=== PATIENT | female | born 2000 | race Two or more races ===

== ENCOUNTER 2022-09-01 08:28 | Emergency (ER) | payer BC, OTHER ==
--- NOTE | 2022-09-01 09:00 | ED ---
URI HPI - General Chief Complaint: Upper Respiratory Infection Stated Complaint: URI Time Seen by Provider: 09/01/22 08:28 Source: patient, RN notes reviewed Mode of arrival: wheelchair Limitations: no limitations - History of Present Illness Initial Comments: Patient is a 22 year old female presenting to the ER with a chief complaint of cough. She is 36 weeks . Patient symptoms started on 08/29/22, with a productive cough. She describes the phlegm as clear sometimes green/yellow. She is now experiencing a constant dry cough. She endorses associated headache, chills and nightsweats. She is unsure if she has had a fever because she did not take her temperature. Patient admits to a recent sick contact within the last week. She reports the cough is worse when laying down which is causing her to have abdominal pain. Last night, she reports experiencing diarrhea which continued into this morning. She has been taking Mucinex, Robutossin and cough drop with no relief. - Related Data Allergies Allergy/AdvReac Type Severity Reaction Status Date / Time bee pollen Allergy Unknown Verified 09/01/22 08:31 Review of Systems ROS Statement: Those systems with pertinent positive or pertinent negative responses have been documented in the HPI. ROS Other: All systems not noted in ROS Statement are negative. Past Medical History Past Medical History: No Reported History History of Any Multi-Drug Resistant Organisms: None Reported Past Surgical History: No Surgical Hx Reported Past Psychological History: No Psychological Hx Reported Smoking Status: Never smoker Past Alcohol Use History: None Reported Past Drug Use History: None Reported General Exam Limitations: no limitations Head exam: Present: atraumatic, normocephalic, normal inspection Eye exam: Present: normal appearance, PERRL, EOMI. Absent: scleral icterus, conjunctival injection, periorbital swelling ENT exam: Present: normal exam, mucous membranes moist Neck exam: Present: normal inspection. Absent: tenderness, meningismus, lymphadenopathy Respiratory exam: Present: normal lung sounds bilaterally. Absent: respiratory distress, wheezes, rales, rhonchi, stridor Cardiovascular Exam: Present: tachycardia, normal heart sounds Neurological exam: Present: alert, oriented X3, CN II-XII intact Skin exam: Present: warm, dry, intact, normal color. Absent: rash Course Vital Signs 09/01/22 09/01/22 08:28 09:10 Temperature 98.0 F 98.1 F Pulse Rate 111 H 101 H Respiratory 20 Rate Blood Pressure 108/75 O2 Sat by Pulse 97 98 Oximetry Medical Decision Making - Medical Decision Making 22-year-old female presents for cough and cold like symptoms. Patient's RSV positive. Patient was checked that she does have RSV if she delivers she should notify her MEDICAL MANAGER. Return parameters were discussed. Supportive treatment. - Lab Data Lab Results 09/01/22 Range/Units 09:10 Influenza Type A (PCR) Not Detected (Not Detectd) Influenza Type B (PCR) Not Detected (Not Detectd) RSV (PCR) Detected A (Not Detectd) SARS-CoV-2 (PCR) Not Detected (Not Detectd) Disposition Clinical Impression: RSV infection Disposition: HOME SELF-CARE Condition: Stable Instructions (If sedation given, give patient instructions): Respiratory Syncytial Virus (ED) Additional Instructions: Please return to the Emergency Department if symptoms worsen or any other concerns. Is patient prescribed a controlled substance at d/c from ED?: No Referrals: None,Stated [Primary Care Provider] - 1-2 days Time of Disposition: 10:54
--- NOTE | 2022-09-01 09:51 | XR ---
EXAMINATION TYPE: XR chest 2V DATE OF EXAM: 09/01/2022 COMPARISON: NONE TECHNIQUE: PA and lateral views submitted. HISTORY: fever, cough FINDINGS: The lungs are clear and there is no pneumothorax, pleural effusion, or focal pneumonia. Size normal . No overt failure. IMPRESSION: 1. No acute process.
[2022-09-01 11:06] VITALS: BP 131/70; PULSE 99; RESP 16; TEMP 98.2
== END 2022-09-01 11:05 | disposition home or self-care (01) ==
LOC: EC 08:28
DX: J06.9 Acute upper respiratory infection, unspecified (principal); B97.4 Respiratory syncytial virus as the cause of diseases classified elsewhere; Z20.822 Contact with and (suspected) exposure to COVID-19; Z91.030 Bee allergy status
CPT/HCPCS: 71046; 87636; 99283

== ENCOUNTER 2023-11-08 14:04 | Emergency (ER) | payer OTHER ==
[2023-11-08 14:25] VITALS: TEMP 98
--- NOTE | 2023-11-08 14:37 | ED ---
URI HPI - General Source: patient, RN notes reviewed Mode of arrival: ambulatory Limitations: no limitations <Stephanie Dockery - Last Filed: 11/08/23 14:37> - General Source: RN notes reviewed, old records reviewed Mode of arrival: ambulatory Limitations: no limitations - History of Present Illness MD Complaint: cough -: days(s) Severity: severe Severity scale (1-10): 8 Quality: sharp Consistency: intermittent Improves With: nothing Worsens With: nothing Associated Symptoms: cough, chest pain Treatments Prior to Arrival: none <Monty Kerr - Last Filed: 11/15/23 16:26> - General Chief Complaint: Upper Respiratory Infection Stated Complaint: R side rib pain Time Seen by Provider: 11/08/23 14:37 - History of Present Illness Initial Comments: Patient is a 23-year-old female presented ER with chief complaint of right-sided rib pain. Patient states she recently had Covid and is still coughing. Patient states she coughed today and heard a pop on her right side. Patient is 8 weeks . (Stephanie Dockery) This is a 23-year-old female to the emergency department for evaluation of rib pain after Covid: Persistent cough. Severe right-sided rib pain and concern for fracture (Monty Kerr) - Related Data Home Medications Medication Instructions Recorded Confirmed No Known Home Medications 11/08/23 11/08/23 Allergies Allergy/AdvReac Type Severity Reaction Status Date / Time bee pollen Allergy Unknown Verified 11/08/23 15:54 Review of Systems ROS Other: All systems not noted in ROS Statement are negative. <Stephanie Dockery - Last Filed: 11/08/23 14:37> ROS Other: All systems not noted in ROS Statement are negative. <Monty Kerr - Last Filed: 11/15/23 16:26> ROS Statement: Those systems with pertinent positive or pertinent negative responses have been documented in the HPI. Past Medical History Past Medical History: No Reported History History of Any Multi-Drug Resistant Organisms: None Reported Past Surgical History: No Surgical Hx Reported Past Psychological History: No Psychological Hx Reported Smoking Status: Never smoker Past Alcohol Use History: None Reported Past Drug Use History: None Reported <Stephanie Dockery - Last Filed: 11/08/23 14:37> General Exam Limitations: no limitations <Stephanie Dockery - Last Filed: 11/08/23 14:37> General appearance: alert, in no apparent distress Head exam: Present: atraumatic, normocephalic, normal inspection Eye exam: Present: normal appearance, PERRL, EOMI. Absent: scleral icterus, conjunctival injection, periorbital swelling ENT exam: Present: normal exam, mucous membranes moist Neck exam: Present: normal inspection. Absent: tenderness, meningismus, lymphadenopathy Respiratory exam: Present: normal lung sounds bilaterally. Absent: respiratory distress, wheezes, rales, rhonchi, stridor Cardiovascular Exam: Present: regular rate, normal rhythm, normal heart sounds. Absent: systolic murmur, diastolic murmur, rubs, gallop, clicks GI/Abdominal exam: Present: soft, normal bowel sounds. Absent: distended, tenderness, guarding, rebound, rigid Extremities exam: Present: normal inspection, full ROM, normal capillary refill. Absent: tenderness, pedal edema, joint swelling, calf tenderness Back exam: Present: normal inspection Neurological exam: Present: alert, oriented X3, CN II-XII intact Psychiatric exam: Present: normal affect, normal mood Skin exam: Present: warm, dry, intact, normal color. Absent: rash <Monty Kerr - Last Filed: 11/15/23 16:26> - General Exam Comments Initial Comments: Visual Physical Exam Vital signs reviewed General: Well-appearing, nontoxic, no acute distress. Head: Normocephalic, atraumatic Eyes: PERRLA, EOMI ENT: Airway patent Chest: Nonlabored breathing Skin: No visual rash, normal skin tone Neuro: Alert and oriented 3 Musculoskeletal: No gross abnormalities (Stephanie Dockery) Course <Monty Kerr - Last Filed: 11/15/23 16:26> Vital Signs 11/08/23 11/08/23 11/08/23 14:17 15:23 16:44 Temperature 98 F Pulse Rate 114 H 107 H Respiratory 20 18 18 Rate Blood Pressure 106/60 101/64 O2 Sat by Pulse 97 100 Oximetry - Reevaluation(s) Reevaluation #1: Medical records reviewed (Monty Kerr) Reevaluation #2: Patient symptoms are improved (Monty Kerr) Reevaluation #3: Patient informed results and questions have been answered (Monty Kerr) Reevaluation #4: Was pt. sent in by a medical professional or institution (ISAURA Atkins, [employer] F[employer]ITURE PANEL COVERER, urgent care, hospital, or fdc...) When possible be specific @ -no Did you speak to anyone other than the patient for history (EMS, parent, family, police, friend...)? What history was obtained from this source @ -no Did you review nursing and triage notes (agree or disagree)? Why? @ -agree Are old charts reviewed (outside hosp., previous admission, EMS record, old EKG, old radiological studies, urgent care reports/EKG's, fdc records)? Report findings @ -yes Differential Diagnosis (chest pain, altered mental status, abdominal pain women, abdominal pain men, vaginal bleeding, weakness, fever, dyspnea, syncope, headache, dizziness, GI bleed, back pain, seizure, CVA, palpatations, mental health, musculoskeletal)? @ -prior EKG interpreted by me (3pts min.). @ -no X-rays interpreted by me (1pt min.). @ -yes negative for acute disease CT interpreted by me (1pt min.). @ -no U/S interpreted by me (1pt. min.). @ -no What testing was considered but not performed or refused? (CT, X-rays, U/S, labs)? Why? @ -none What meds were considered but not given or refused? Why? @ -none Did you discuss the management of the patient with other professionals (professionals i.e. ISAURA Atkins, [employer] F[employer]ITURE PANEL COVERER, lab, RT, psych nurse, social media strategist, sales coach, teacher, commanding officer homicide squad, piano case maker)? Give summary @ -no Was smoking cessation discussed for >3mins.? @ -no Were there social determinants of health that impacted care today? How? (Homelessness, low income, unemployed, alcoholism, drug addiction, transportation, low edu. Level, literacy, decrease access to med. care, [facility], rehab)? @ -none Was there de-escalation of care discussed even if they declined (Discuss DNR or withdrawal of care, Hospice)? DNR status @ -no What co-morbidities impacted this encounter? (DM, HTN, Smoking, COPD, CAD, Cancer, CVA, ARF, Chemo, Hep., AIDS, mental health diagnosis, sleep apnea, morbid obesity)? @ -none Was patient admitted / discharged? Hospital course, mention meds given and route, prescriptions, significant lab abnormalities, going to OR and other pertinent info. @ - 23 female to the emergency department for evaluation of chest pain after coughing. Rib pain. Patient has no acute findings here in the emergency prior. Patient is weeks with distress. Patient has adequate pain control can be discharged home Discharge Was critical care preformed (if so, how long)? @ -no Undiagnosed new problem with uncertain prognosis? @ -no Drug Therapy requiring intensive monitoring for toxicity (Heparin, Nitro, Insulin, Cardizem)? @ -no Were any procedures done? @ -no Diagnosis/symptom? @ -Cough, rib pain Acute, or Chronic, or Acute on Chronic? @ -Acute Uncomplicated (without systemic symptoms) or Complicated (systemic symptoms)? @ -Complicated Side effects of treatment? @ -no Exacerbation, Progression, or Severe Exacerbation? @ -exacerbation Poses a threat to life or bodily function? How? (Chest pain, USA, NE, pneumonia, PE, COPD, DKA, ARF, appy, cholecystitis, CVA, Diverticulitis, Homicidal, Suicidal, threat to staff... and all critical care pts) @ -no (Monty Kerr) Reevaluation #5: Differential Dyspnea: Coronary syndrome, arrhythmia, tamponade, asthma, COPD, pulmonary embolism, pneumonia, pneumothorax, pulmonary effusion, anaphylaxis, diabetic ketoacidosis, flailed chest, pulmonary contusion, diaphragmatic rupture, anemia, neuromuscular, this is not meant to be an all-inclusive list. (Karey Kerr rissunday Al) Medical Decision Making <Stephanie Dockery - Last Filed: 11/08/23 14:37> - Radiology Data Radiology results: report reviewed (Chest x-ray is negative for acute disease), image reviewed <Monty Kerr - Last Filed: 11/15/23 16:26> - Medical Decision Making I performed the quick note portion of the exam. Electronically signed by Stephanie Dockery PA-C (Stephanie Dockery) 23 female to the emergency department for evaluation of chest pain after coughing. Rib pain. Patient has no acute findings here in the emergency prior. Patient is weeks with distress. Patient has adequate pain co ntrol can be discharged home (Monty Kerr) - Lab Data Lab Results 11/08/23 Range/Units 16:20 Urine Color Colorless Urine Appearance Clear (Clear) Urine pH 7.5 (5.0-8.0) Ur Specific Arnold 1.004 (1.001-1.035) Urine Protein Negative (Negative) Urine Glucose (UA) Negative (Negative) Urine Ketones Negative (Negative) Urine Blood Negative (Negative) Urine Nitrite Negative (Negative) Urine Bilirubin Negative (Negative) Urine Urobilinogen <2.0 (<2.0) mg/dL Ur Leukocyte Esterase Negative (Negative) Disposition <Stephanie Dockery - Last Filed: 11/08/23 14:37> Is patient prescribed a controlled substance at d/c from ED?: No Time of Disposition: 16:20 <Monty Kerr - Last Filed: 11/15/23 16:26> Clinical Impression: Contusion of rib on right side, Bronchitis, Upper respiratory tract infection Disposition: HOME SELF-CARE Condition: Good Instructions (If sedation given, give patient instructions): Rib Contusion (ED) Referrals: None,Stated [Primary Care Provider] - 1-2 days
--- NOTE | 2023-11-08 15:15 | XR ---
EXAMINATION TYPE: XR ribs RT DATE OF EXAM: 11/08/2023 COMPARISON: NONE HISTORY: Pain TECHNIQUE: 2 views right RIBS FINDINGS: The right lung is clear with no evidence of consolidation. No pleural effusion or sizable p neumothorax. Osseous structures are intact. No acute displaced rib fracture. IMPRESSION: No acute displaced rib fracture.
[2023-11-08 15:38] VITALS: RESP 18
[2023-11-08] MEDS ORDERED: diphenhydrAMINE 50 MG CAP PO STA (15:55)
[2023-11-08] MEDS ORDERED: ACETAMINOPHEN TAB 500 MG TAB PO STA (15:55)
[2023-11-08 16:47] LABS: Appearance,Urine Clear (Clear); Bilirubin,Urine Negative (Negative); Blood,Urine Negative (Negative); Color,Urine Colorless; Glucose,Urine (UA) Negative (Negative); Ketones,Urine Negative (Negative); Leukocyte Esterase,Urine Negative (Negative); Nitrite,Urine Negative (Negative); PH, Urine 7.5 (5.0-8.0); Protein,Urine Negative (Negative); Specific Gravity,Urine 1.004 (1.001-1.035); Urobilinogen,Urine <2.0 mg/dL (<2.0)
[2023-11-08 16:49] VITALS: BP 101/64; PULSE 107
== END 2023-11-08 16:45 | disposition home or self-care (01) ==
LOC: EC 14:04
DX: O9A.211 Injury, poisoning and certain other consequences of external causes complicating pregnancy, first trimester (principal); S20.211A Contusion of right front wall of thorax, initial encounter; O99.511 Diseases of the respiratory system complicating pregnancy, first trimester; J06.9 Acute upper respiratory infection, unspecified; J40 Bronchitis, not specified as acute or chronic; Z3A.08 8 weeks gestation of pregnancy; Z91.030 Bee allergy status; X58.XXXA Exposure to other specified factors, initial encounter
CPT/HCPCS: 81003; 99283